=== PATIENT | male | born 1970 | race African-American/Black ===

== ENCOUNTER 2018-11-19 13:13 | Emergency (ER) | payer SELFPAY ==
[~2018-11-19] VITALS: Ht 182.9 cm; Wt 90.9 kg
[2018-11-19] MEDS ORDERED: AMLO-511 PO (13:50)
[2018-11-19 13:55] LABS: GLUCOSE,POINT OF CARE 114 MG/DL (70-110)
[2018-11-19 14:31] VITALS: BP 161/92
== END 2018-11-19 16:54 | disposition left against medical advice (07) ==
LOC: EMS 13:15
DX: S60.012A Contusion of left thumb without damage to nail, initial encounter (principal); I10 Essential (primary) hypertension; E11.9 Type 2 diabetes mellitus without complications; F12.90 Cannabis use, unspecified, uncomplicated; F17.210 Nicotine dependence, cigarettes, uncomplicated; W22.8XXA Striking against or struck by other objects, initial encounter; Y93.89 Activity, other specified; Y92.89 Other specified places as the place of occurrence of the external cause; Y99.8 Other external cause status